=== PATIENT | female | born 1980 | race African-American/Black ===

== ENCOUNTER 2018-10-13 05:41 | Day surgery (SDC) | payer MEDICARE ==
[~2018-10-13] VITALS: Ht 167.6 cm; Wt 105.9 kg
[~2018-10-13 05:41] MED LIST: ALBU8.5H5 INH; ASPI1TAB31 PO; BACI1TAB2 PO; BIOT25005 PO; CHOL100011 PO; ESCI5TAB7 PO; FERR-46 PO; FLUT9.9S NAS; LACT1CAP35 PO; LITH300T30 PO; LORA10TA75 PO; MULT-212 PO; NORE1TAB26 PO; PROG100C2 PO; QUET25TA5 PO; TRAZ50TA66 PO; VITA400C43 PO
[2018-10-13 06:25] VITALS: BP 115/80
[2018-10-13] MEDS ORDERED: EPINEPHRINE 1 MG/ML, 1ML ONE (06:45)
[2018-10-13] MEDS ORDERED: BUPIVACAINE 0.25% ONE (06:45)
[2018-10-13] MEDS ORDERED: LACTATED RINGERS 1,000 ML IV SCH ×2 (06:49→08:59)
[2018-10-13] MEDS ORDERED: FENTANYL PF 250 MCG/5ML ONE (06:51)
[2018-10-13] MEDS ORDERED: MIDAZOLAM 1 MG/ML, 2ML ONE (06:51)
[2018-10-13] MEDS ORDERED: EPHEDRINE 50 MG/ML, 1ML ONE (07:08)
[2018-10-13] MEDS ORDERED: DEXAMETHASONE 4 MG/ML, 1ML ONE (07:08)
[2018-10-13] MEDS ORDERED: PROPOFOL 10 MG/ML, 20ML ONE (07:08)
[2018-10-13] MEDS ORDERED: SUCCINYLCHOLINE 20 MG/ML, 10ML ONE (07:08)
[2018-10-13] MEDS ORDERED: CEFAZOLIN 1,000 MG ONE (07:08)
[2018-10-13] MEDS ORDERED: ONDANSETRON 2MG/ML, 2ML ONE (07:08)
[2018-10-13] MEDS ORDERED: GLYCOPYRROLATE 0.2MG/1ML, 5ML ONE (07:08)
[2018-10-13] MEDS ORDERED: ROCURONIUM 10 MG/ML,10ML ONE (07:08)
[2018-10-13] MEDS ORDERED: SCOPOLAMINE PATCH, 1.5MG PATCH.TD72 TD ONE (07:30)
[2018-10-13] MEDS ORDERED: ACETAMINOPHEN 500 MG TABLET PO ONE (07:30)
[2018-10-13] MEDS ORDERED: SUGAMMADEX 200 MG/2 ML IVPush ONE (08:59)
[2018-10-13] MEDS ORDERED: PROMETHAZINE 25 MG SUPP PR ONE (09:00)
[2018-10-13] MEDS ORDERED: ONDANSETRON 2MG/ML, 2ML IVPush PRN (09:00)
[2018-10-13] MEDS ORDERED: HYDROcodone/APAP 5/325 TABLET PO PRN (09:00)
[2018-10-13] MEDS ORDERED: HYDROcodone/APAP 7.5-325MG/15ML UDC ONE (09:30)
[2018-10-13] MEDS ORDERED: HYDROcodone/APAP 7.5-325MG/15ML UDC PO PRN (10:00)
[2018-10-13] MEDS ORDERED: KETOROLAC 30 MG/1 ML IV PRN (10:00)
== END 2018-10-13 17:15 | disposition home or self-care (01) ==
LOC: OUT 05:41 → MERGE 07:30 → OUT 17:15
PROVIDERS: ATTEND Obstetrics & Gynecology Female Pelvic Medicine and Reconstructive Surgery
DX: D25.0 Submucous leiomyoma of uterus (principal); N92.0 Excessive and frequent menstruation with regular cycle; D64.9 Anemia, unspecified; G43.909 Migraine, unspecified, not intractable, without status migrainosus; F31.9 Bipolar disorder, unspecified; J45.909 Unspecified asthma, uncomplicated; Z98.890 Other specified postprocedural states; Z72.89 Other problems related to lifestyle; Z88.6 Allergy status to analgesic agent; Z88.1 Allergy status to other antibiotic agents; Z88.5 Allergy status to narcotic agent; Z88.8 Allergy status to other drugs, medicaments and biological substances
CPT/HCPCS: 58571; 81025; 88307; J0171; J0330; J0690; J1100; J2250; J2405; J2704; J3010; J3490; J7120